=== PATIENT | female | born 1980 | race Caucasian/White ===

== ENCOUNTER → 2017-06-06 | Outpatient (REF) ==
[~2017-06-06] MED LIST: BARIUM SULFATE 176 GM BTL PO ONE; BARIUM SULFATE 340 GM POWD ONE; NO ROUTINE MEDS
--- NOTE | 2017-06-06 17:05 | RADIOLOGY IMAGING REPORT ---
FACILITY: [facility] PATIENT NAME: Gissel Sanderson : 1980 MR: [id number] V: [id number] EXAM DATE: ORDERING PHYSICIAN: ERICK ARAIZA TECHNOLOGIST: Location: [facility] Patient: Gissel Sanderson : 1980 Visit/Account:[id number] Date of Sevice: 06/06/2017 Exam type: ESOPHAGRAM History: GERD and dysphasia Comparison: None. Findings: Double contrast esophagram was performed with thick and thin barium. There was a moderate amount of gastroesophageal reflux observed. There was no evidence of a hiatal hernia, esophageal narrowing or mucosal erosion. The fluoroscopy dose area product was 97.02 micro-Serrato per meter squared IMPRESSION: 1. Moderate amount of gastroesophageal reflux although no evidence of hiatal hernia, esophageal narr owing or mucosal erosion Report Dictated By: Ngoc Sauer MD at 06/06/2017 5:00 PM Report E-Signed By: Ngoc Sauer MD at 06/06/2017 5:02 PM WSN:[email or web address]
== END ==
LOC: RAD 05-03 07:41
PROVIDERS: ATTEND Family Medicine
DX: K21.9 Gastro-esophageal reflux disease without esophagitis (principal)
CPT/HCPCS: 74220

== ENCOUNTER 2017-10-24 12:23 | Emergency (ER) | payer SELFPAY ==
[~2017-10-24 12:23] MED LIST changes: -BARIUM SULFATE 176 GM BTL PO ONE; -BARIUM SULFATE 340 GM POWD ONE
--- NOTE | 2017-10-24 12:33 | ER Report ---
History and Physical Time Seen By MD: 12:32 HPI/ROS CHIEF COMPLAINT: Left back pain HISTORY OF PRESENT ILLNESS: 37-year-old female patient presents to the emergency room with complaint of left back pain. Patient states that she was awoken this morning at 2:00 in the morning with significant back pain. Patient states the pain is uncontrollable. Patient denies any injury to her back. She states she has increasing pain with inspiration, or movement. Patient states that she has recently started new job and is more active than she normally is. She states that she was a little sore last night but today everything is significantly worse. Patient denies having a cough. She states that the pain has seemed to get worse. She states that she has pain with deep inspiration. She was concerned and wanted to be evaluated. REVIEW OF SYSTEMS: Respiratory: As noted above Cardiovascular: No chest pain, no palpitations. Gastrointestinal: No vomiting, no abdominal pain. Musculoskeletal: As noted above Allergies: Coded Allergies: No Known Drug Allergies (Unverified , 07/28/13) Home Meds Active Scripts Cyclobenzaprine Hcl (CYCLOBENZAPRINE HCL) 10 Mg Tablet, 10 MG PO TID PRN for MUSCLE SPASMS, #15 TAB Prov:HANNAH CORNELL 10/24/17 Ketorolac Tromethamine (KETOROLAC TROMETHAMINE) 10 Mg Tab, 10 MG PO Q6H, #20 TAB Prov:HANNAH CORNELL [facility] 10/24/17 Reported Medications [No Routine Meds] No Conflict Check 03/14/07 Past Medical/Surgical History Patient has a past medical history of tonsillectomy. Patient has a surgical history of teeth being pulled. Reviewed Nurses Notes: Yes Hx Smoking: Yes (1/2-1 ppd) Smoking Status: Current: Every Day Smoker Hx Substance Use Disorder: No Hx Alcohol Use: No Constitutional Vital Sign - Last 24 Hours 10/24/17 10/24/17 10/24/17 10/24/17 12:29 12:30 13:00 14:00 Temp 98.5 Pulse 92 Resp 16 B/P (MAP) 127/89 127/89 (102) 112/81 (91) 109/86 (94) Pulse Ox 95 O2 Delivery Room Air 10/24/17 10/24/17 14:30 14:46 B/P (MAP) 118/84 (95) 110/83 (92) Physical Exam General Appearance: The patient is alert, has no immediate need for airway protection and no current signs of toxicity. ENT: Tympanic membranes are pearly-quijano, auditory canals are patent, mucous membranes are moist. Respiratory: Chest is non tender, lungs are clear to auscultation. Cardiac: regular rate and rhythm Gastrointestinal: Abdomen is soft and non tender, no masses, bowel sounds normal. Musculoskeletal: Neck: Neck is supple and non tender. Back: Patient has tenderness to the left side of the upper back, there is no bruising or deformities. Extremities have full range of motion and are non tender. Skin: No rashes or lesions. DIFFERENTIAL DIAGNOSIS: After history and physical exam differential diagnosis was considered for muscle strain, pulmonary embolism, LA, rib fracture. Medical Decision Making Data Points Result Diagram: 10/24/17 1314 10/24/17 1314 Laboratory Hematology Test 10/24/17 13:14 Red Blood Count 4.26 M/uL (4.17-5.56) Mean Corpuscular Volume 115.7 fL (80.0-96.0) Mean Corpuscular Hemoglobin 41.2 pg (26.0-33.0) Mean Corpuscular Hemoglobin Concent 35.6 g/dL (32.0-36.0) Red Cell Distribution Width 18.5 % (11.5-14.5) Mean Platelet Volume 7.8 fL (7.2-11.1) Neutrophils (%) (Auto) 72.2 % (39.4-72.5) Lymphocytes (%) (Auto) 19.4 % (17.6-49.6) Monocytes (%) (Auto) 7.0 % (4.1-12.4) Eosinophils (%) (Auto) 0.9 % (0.4-6.7) Basophils (%) (Auto) 0.5 % (0.3-1.4) Nucleated RBC Relative Count (auto) 0.1 /100WBC Neutrophils # (Auto) 7.3 K/uL (2.0-7.4) Lymphocytes # (Auto) 2.0 K/uL (1.3-3.6) Monocytes # (Auto) 0.7 K/uL (0.3-1.0) Eosinophils # (Auto) 0.1 K/uL (0.0-0.5) Basophils # (Auto) 0.1 K/uL (0.0-0.1) Nucleated RBC Absolute Count (auto) 0.01 K/uL D-Dimer Quantitative (PE/DVT) 0.50 ug/ml (0-0.50) Sodium Level 137 mmol/L (137-145) Potassium Level 3.3 mmol/L (3.5-5.0) Chloride Level 102 mmol/L (98-107) Carbon Dioxide Level 25 mmol/L (22-31) Blood Urea Nitrogen 3 mg/dl (7-18) Creatinine 0.50 mg/dl (0.52-1.04) Glomerular Filtration Rate Calc > 60.0 Random Glucose 101 mg/dl (75-110) Calcium Level 8.8 mg/dl (8.4-10.2) Total Bilirubin 1.2 mg/dl (0.2-1.3) Aspartate Amino Transf (AST/SGOT) 22 U/L (0-35) Alanine Aminotransferase (ALT/SGPT) 17 U/L (0-56) Alkaline Phosphatase 82 U/L (0-126) Total Creatine Kinase 58 U/L (30-135) Troponin I < 0.012 ng/ml Total Protein 6.7 g/dl (6.3-8.2) Albumin 3.9 g/dl (3.5-5.0) Chemistry Test 10/24/17 13:14 White Blood Count 10.1 k/uL (4.5-11.0) Red Blood Count 4.26 M/uL (4.17-5.56) Hemoglobin 17.5 g/dL (12.0-16.0) Hematocrit 49.3 % (34.0-47.0) Mean Corpuscular Volume 115.7 fL (80.0-96.0) Mean Corpuscular Hemoglobin 41.2 pg (26.0-33.0) Mean Corpuscular Hemoglobin Concent 35.6 g/dL (32.0-36.0) Red Cell Distribution Width 18.5 % (11.5-14.5) Platelet Count 221 K/uL (150-450) Mean Platelet Volume 7.8 fL (7.2-11.1) Neutrophils (%) (Auto) 72.2 % (39.4-72.5) Lymphocytes (%) (Auto) 19.4 % (17.6-49.6) Monocytes (%) (Auto) 7.0 % (4.1-12.4) Eosinophils (%) (Auto) 0.9 % (0.4-6.7) Basophils (%) (Auto) 0.5 % (0.3-1.4) Nucleated RBC Relative Count (auto) 0.1 /100WBC Neutrophils # (Auto) 7.3 K/uL (2.0-7.4) Lymphocytes # (Auto) 2.0 K/uL (1.3-3.6) Monocytes # (Auto) 0.7 K/uL (0.3-1.0) Eosinophils # (Auto) 0.1 K/uL (0.0-0.5) Basophils # (Auto) 0.1 K/uL (0.0-0.1) Nucleated RBC Absolute Count (auto) 0.01 K/uL D-Dimer Quantitative (PE/DVT) 0.50 ug/ml (0-0.50) Glomerular Filtration Rate Calc > 60.0 Calcium Level 8.8 mg/dl (8.4-10.2) Total Bilirubin 1.2 mg/dl (0.2-1.3) Aspartate Amino Transf (AST/SGOT) 22 U/L (0-35) Alanine Aminotransferase (ALT/SGPT) 17 U/L (0-56) Alkaline Phosphatase 82 U/L (0-126) Total Creatine Kinase 58 U/L (30-135) Troponin I < 0.012 ng/ml Total Protein 6.7 g/dl (6.3-8.2) Albumin 3.9 g/dl (3.5-5.0) Coagulation Test 10/24/17 13:14 D-Dimer Quantitative (PE/DVT) 0.50 ug/ml EKG/Imaging EKG Interpretation 12 lead EKG: Rhythm: normal sinus rhythm with a short FL interval with a ventricular rate of 86 bpm [place]: normal QRS: normal ST segments: normal Imaging Study: Frontal and lateral views of the chest Indication: Left posterior rib pain Comparison study: None Findings: PA and lateral views of the chest demonstrate no evidence of acute infiltrate. There is no evidence of pleural effusion. There is no evidence of pneumothorax. The mediastinal, cardiac, and diaphragmatic contours are unremarkable. The visualized bony structures are unremarkable. Specifically, there is no evidence of rib fracture. IMPRESSION: Unremarkable chest. Report Dictated By: Jeromy Burks at 10/24/2017 1:46 PM Report E-Signed By: Jeromy Burks at 10/24/2017 1:47 PM Study: RIBS LEFT Indication: Left rib pain Comparison study: None available Findings: 2 oblique views of the left ribs demonstrates no evidence of acute bony abnormality. A skin marker was placed overlying the posterior left ninth rib. There is no evidence of abnormality in this area. IMPRESSION: Unremarkable exam Report Dictated By: Jeromy Burks at 10/24/2017 1:47 PM Report E-Signed By: Jeromy Burks at 10/24/2017 1:48 PM ED Course/Re-evaluation ED Course Patient was admitted to an exam room, history and physical were obtained. Differential diagnoses were considered. On examination patient had tenderness to the left side of the back, there is no bruising noted. An EKG, CBC, CMP, chest x-ray, left rib x-rays were done. The lab results were unremarkable, d-dimer was 0.5, imaging results were negative. Patient had a normal EKG. Patient was treated with 15 mg of Toradol in the emergency room. I discussed findings with the patient and her family. We'll go ahead and discharge her home at this time. We will have her prescription for muscle relaxer as well as an anti-inflammato ry. She is follow-up with her primary care provider if condition persists. She is return to emergency room if condition worsens. Patient verbalized understanding and agreement with plan. Decision to Disposition Date: Oct 24, 2017 Decision to Disposition Time: 14:33 Depart Departure Latest Vital Signs Vital Signs Date Time Temp Pulse Resp B/P (MAP) Pulse Ox O2 Delivery O2 Flow Rate FiO2 10/24/17 14:46 110/83 (92) 10/24/17 12:29 98.5 92 16 95 Room Air Impression: Primary Impression: Muscle spasm Condition: Improved Disposition: HOME OR SELF-CARE New Scripts Cyclobenzaprine Hcl (CYCLOBENZAPRINE HCL) 10 Mg Tablet 10 MG PO TID PRN for MUSCLE SPASMS, #15 TAB Prov: HANNAH CORNELL 10/24/17 Ketorolac Tromethamine (KETOROLAC TROMETHAMINE) 10 Mg Tab 10 MG PO Q6H, #20 TAB Prov: HANNAH CORNELL 10/24/17 Patient Instructions: Muscle Spasm (ED) Additional Instructions: Limit activity by pain. Alternate ice and heat. Follow up with your primary care provider in the next week. Return to the ER if condition worsens. Increase low impact aerobic activity to help loosen up those muscles. HANNAH CORNELL Oct 24, 2017 12:33
[2017-10-24] MEDS ORDERED: KETOROLAC 15 MG/ML VIAL IVP ONE (12:40)
[2017-10-24] MEDS ORDERED: NS(*) 0.9% 1000 ML BAG 1,000 ML IV ONE (12:40)
--- NOTE | 2017-10-24 12:55 | EKG ---
FACILITY: [facility] [place] PATIENT NAME: BECKY CORTEZ : [id number] MR: [id number] V: [id number] EXAM DATE: ORDERING PHYSICIAN: HANNAH CORNELL TECHNOLOGIST: BRIAN Test Reason : ER Blood Pressure : / mmHG Vent. Rate : 086 BPM Atrial Rate : 086 BPM P-R Int : 102 ms QRS Dur : 070 ms QT Int : 362 ms P-R-T Axes : 065 065 036 degrees QTc Int : 433 ms Sinus rhythm with short KS Possible Left atrial enlargement Borderline ECG No previous ECGs available Confirmed by Kaushik Nova ([id number]) on 10/24/2017 1:52:57 PM Referred By: ZACHARY Confirmed By:Kaushik Rousseau
[2017-10-24 13:22] LABS: PLATELET COUNT, AUTOMATED 221 K/uL (150-450)
--- NOTE | 2017-10-24 13:52 | RADIOLOGY IMAGING REPORT ---
FACILITY: [facility] PATIENT NAME: Gissel Sanderson : 1980 MR: [id number] V: [id number] EXAM DATE: ORDERING PHYSICIAN: HANNAH CORNELL TECHNOLOGIST: Location: [facility] [place] Patient: Gissel Sanderson : 1980 Visit/Account:[id number] Date of Sevice: 10/24/2017 Study: RIBS LEFT Indication: Left rib pain Comparison study: None available Findings: 2 oblique views of the left ribs demonstrates no evidence of acute bony abnormality. A skin marker was placed overlying the posterior left ninth rib. There is no evidence of abnormality in thi s area. IMPRESSION: Unremarkable exam Report Dictated By: Jeromy Burks at 10/24/2017 1:47 PM Report E-Signed By: Jeromy Burks at 10/24/2017 1:48 PM WSN:[id number]
--- NOTE | 2017-10-24 13:53 | RADIOLOGY IMAGING REPORT ---
FACILITY: [facility] PATIENT NAME: Gissel Sanderson : 1980 MR: [id number] V: [id number] EXAM DATE: ORDERING PHYSICIAN: HANNAH CORNELL TECHNOLOGIST: Location: [facility] [place] Patient: Gissel Sanderson : 1980 Visit/Account:[id number] Date of Sevice: 10/24/2017 Study: Frontal and lateral views of the chest Indication: Left posterior rib pain Comparison study: None Findings: PA and lateral views of the chest demonstrate no evidence of acute infiltrate. There is no evidence of pleural effusion. There is no evidence of pneumothorax. The mediastinal, cardiac, and diaphragmatic contours are unremarkable. The visualized bony structures are unremarkable. Specifically, there is no evidence of rib fracture. IMPRESSION: Unremarkable chest. Report Dictated By: Jeromy Burks at 10/24/2017 1:46 PM Report E-Signed By: Jeromy Burks at 10/24/2017 1:47 PM WSN:[id number]
[2017-10-24] MEDS ORDERED: CYCL10TA29 PO (14:32)
[2017-10-24] MEDS ORDERED: KET10 PO (14:32)
[2017-10-24 14:46] VITALS: BP 110/83
== END 2017-10-24 14:40 | disposition home or self-care (01) ==
LOC: ER 12:31
DX: M62.830 Muscle spasm of back (principal); F17.210 Nicotine dependence, cigarettes, uncomplicated
CPT/HCPCS: 71046; 71100; 82550; 84484; 85025; 85379; 93005; 96361; 96374; 99284; J1885; J7030; 82040; 82247; 82310; 82374; 82435; 82565; 82947; 84075; 84132; 84155; 84295; 84450; 84460; 84520